=== PATIENT | female | born 1995 | race African-American/Black ===

== ENCOUNTER 2018-12-08 10:25 | Emergency (ER) | payer OTHER ==
[~2018-12-08] VITALS: Ht 152.4 cm; Wt 65.0 kg
[2018-12-08] MEDS ORDERED: LIDOCAINE HCL 2% JELLY 5ML TOP ONE (13:00)
[2018-12-08 13:09] VITALS: BP 135/87
== END 2018-12-08 13:22 | disposition home or self-care (01) ==
LOC: ER 10:25
DX: N90.89 Other specified noninflammatory disorders of vulva and perineum (principal)
CPT/HCPCS: 99282